=== PATIENT | female | born 1935 | race Two or more races ===

== ENCOUNTER 2019-05-02 10:35 | Inpatient (IN) | payer MEDICARE, OTHER ==
[~2019-05-02] VITALS: Ht 167.6 cm; Wt 83.7 kg
[~2019-05-02 10:35] MED LIST: APIX2.5T PO; ATOR40TA78 PO; METO50TA82 PO/NG
--- NOTE | 2019-05-02 10:36 | NUR ---
BIB [facility] FOR STROKE LIKE SYMPTOMS. LAST SEEN NORMAL AT 0100 TODAY. WAS WOKEN UP AT 0700 TODAY W/ SX INCLUDING SLURRED GARGLED SPEECH W L SIDE FACIAL DROOP AND BLOOD IN MOUTH. PT SLUGGISH TO COMMANDS. HX CVA. ON COUMADIN. FOUND TO BE 60'S RA PLACED ON O2 CURRENTLY ON 16 L NONREBREATHER SATING 100%. 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 ERP [address] SMITH AT BEDSIDE FOR STROKE EVAL.
--- NOTE | 2019-05-02 10:41 | NUR ---
PT IN CT.
[2019-05-02] MEDS ORDERED: WARF1TAB74 PO (11:00)
[2019-05-02] MEDS ORDERED: SODIUM CHLORIDE FLUSH 10ML SYR IVF ONE (11:00)
[2019-05-02] MEDS ORDERED: AMLO10TA8 PO (11:00)
--- NOTE | 2019-05-02 11:25 | NUR ---
PT MORE AWAKE AND ALERT. RESPONDING TO QUESTIONS BETTER. MAKING STATEMENTS SUCH "IT'S COLD".
[2019-05-02 11:26] LABS: BASOPHILS # (AUTO) 0.04 x10^3/uL (0-0.1); BASOPHILS % (AUTO) 0 % (0-1); EOSINOPHILS % (AUTO) 0 % (1-7); LYMPHOCYTES # (AUTO) 1.23 x10^3/uL (1-3.4); LYMPHOCYTES % (AUTO) 12 % (22-44); MD NO; MEAN CORPUSCULAR HEMOGLOBIN 21.2 pg (27.0-34.8); MEAN CORPUSCULAR HGB CONC 31.9 g/dL (32.4-35.8); MEAN CORPUSCULAR VOLUME 66.5 fL (80-100); MEAN PLATELET VOLUME 8.7 fL (7.4-10.4); MONOCYTES # (AUTO) 0.18 x10^3/uL (0.2-0.8); MONOCYTES % (AUTO) 2 % (2-9); NEUTROPHILS # (AUTO) 9.12 x10^3/uL (1.8-6.8); NEUTROPHILS % (AUTO) 86 % (42-75); PLATELET COUNT 288 x10^3/uL (130-400); RED BLOOD COUNT 4.58 x10^6/uL (3.82-5.3); RED CELL DISTRIBUTION WIDTH 16.2 % (9.6-15.2)
--- NOTE | 2019-05-02 11:35 | NUR ---
PT RESTING ON GURNEY. NADN. VSS. PT O2 TITRATED TO 2L NC SATING 96-98%. ATTEMPTED RA SATS PT DESATED TO 87%.
[2019-05-02 11:37] LABS: INTERNATIONAL NORMALIZED RATIO 2.58 (0.93-1.1); PROTHROMBIN TIME 26.1 Seconds (9.6-11.5)
[2019-05-02 11:38] LABS: ALANINE AMINOTRANSFERASE 46 U/L (12-78); ALBUMIN 3.2 g/dL (3.4-5.0); ANION GAP 7 mmol/L (5-15); CALCIUM 8.4 mg/dL (8.5-10.1); CHLORIDE 109 mmol/L (98-107); CREATININE 1.31 mg/dL (0.55-1.02)
[2019-05-02 11:42] LABS: ALKALINE PHOSPHATASE 150 U/L (45-117); BILIRUBIN,TOTAL 0.8 mg/dL (0.2-1.0); TOTAL PROTEIN 7.7 g/dL (6.4-8.2)
[2019-05-02 11:55] LABS: SALICYLATE LEVEL < 1.7 mg/dL (2.8-20.0)
--- NOTE | 2019-05-02 12:13 | NUR ---
PT MOVED FROM TR03 TO ROOM 2. REPORT GIVEN TO MORENA BANKS.
--- NOTE | 2019-05-02 12:18 | NUR ---
REPORT FROM CRISTINA
[2019-05-02] MEDS ORDERED: FUROSEMIDE 40 MG/4 ML IV ONE (12:30)
[2019-05-02] MEDS ORDERED: ASPIRIN 81 MG TABLET CHEW PO ONE (12:30)
[2019-05-02 12:35] LABS: AMPHETAMINE SCREEN, URINE Negative (Negative); BARBITURATE SCREEN, URINE Negative (Negative); BENZODIAZEPINE SCREEN, URINE Negative (Negative); CANNABINOID SCREEN, URINE Negative (Negative); COCAINE SCREEN, URINE Negative (Negative); METHADONE SCREEN, URINE Negative (Negative); OPIATE SCREEN, URINE Negative (Negative)
[2019-05-02] MEDS ORDERED: FUROSEMIDE 40 MG/4 ML ONE (12:44)
[2019-05-02] MEDS ORDERED: ASPIRIN 81 MG TABLET CHEW ONE (12:44)
[2019-05-02 12:46] LABS: MICROSCOPIC INDICATED
--- NOTE | 2019-05-02 12:56 | NUR ---
MEDICATED FOR LASIX, CALL LIGHT IN REACH. PT IS UNABLE TO CHEW ASA.
[2019-05-02 13:02] LABS: CULTURE INDICATED? NO
[2019-05-02] MEDS ORDERED: ASPIRIN 300 MG SUPP PR ONE (13:30)
--- NOTE | 2019-05-02 13:43 | NUR ---
PT UNABLE TO SWALLOWS PILLS, ASA ORDERED FOR SUPPOSITORY.
--- NOTE | 2019-05-02 14:32 | NUR ---
ADMINISTERED ASA SUPPOSITORY. PT RESTING COMFORTABLE, FAMILY AT BEDSIDE. ON TELE HOLD
--- NOTE | 2019-05-02 14:33 | NUR ---
PT A&OX4, ANSWERING ALL QUESTIONS APPROPIATLY. SBA TO BATHROOM .
--- NOTE | 2019-05-02 14:38 | NUR ---
REPOSITIONED PT, GIVEN PILLOW. DISCUSSED POC FOR ADMIT
--- NOTE | 2019-05-02 14:52 | NUR ---
THROUGHPUT: RECEIVED A CALL FROM ADMITTING THAT PATIENT HAS [employer] WHICH IS NOT A [employer] PRODUCT. DISCUSSED WITH PHYSICAN DR. SMITH WHO STATES PATIENT IS NOT STABLE TO BE TRANSFERRED. EXPLAINED TO PATIENT AND FAMILY MEMBER ABOVE. PT STATES SHE CALLED HER INSURANCE AND THEY STATED TO COME TO [facility] [place].
--- NOTE | 2019-05-02 15:35 | NUR ---
PT AMBULATED SBA TO BATHROOM W OUT DIFFICULTY. [facility] AT BEDSIDE
--- NOTE | 2019-05-02 15:41 | NUR ---
TROPONIN 24.8. BAKARI GAONA APRN AWARE, PAGING DR. JOYNER.
--- NOTE | 2019-05-02 15:45 | NUR ---
DISCUSSED W DR. JOYNER, TROPONIN 24.8. NO ORDERS AT THIS TIME
[2019-05-02] MEDS ORDERED: ONDANSETRON ODT 4 MG PO PRN (16:00)
[2019-05-02] MEDS ORDERED: ONDANSETRON 2MG/ML, 2ML IVPush PRN (16:00)
--- NOTE | 2019-05-02 16:43 | NUR ---
report to raudel
[2019-05-02 17:00] VITALS: BP 146/85
[2019-05-02] MEDS: CARVEDILOL 6.25 MG TABLET PO SCH (17:27)
[2019-05-02] MEDS: FUROSEMIDE 40 MG/4 ML IV SCH (17:27)
[2019-05-02] MEDS ORDERED: WARFARIN 1 MG TABLET PO-COUM ONE (18:00)
[2019-05-02 19:15] VITALS: BP 146/75
[2019-05-02] MEDS: ATORVASTATIN 80 MG TABLET PO SCH (21:15)
[2019-05-03 01:03] VITALS: BP 119/70
[2019-05-03 05:27] LABS: BASOPHILS # (AUTO) 0.04 x10^3/uL (0-0.1); BASOPHILS % (AUTO) 0 % (0-1); EOSINOPHILS # (AUTO) 0.03 x10^3/uL (0-0.4); EOSINOPHILS % (AUTO) 0 % (1-7); LYMPHOCYTES # (AUTO) 2.18 x10^3/uL (1-3.4); LYMPHOCYTES % (AUTO) 24 % (22-44); MD NO; MEAN CORPUSCULAR HEMOGLOBIN 20.7 pg (27.0-34.8); MEAN CORPUSCULAR HGB CONC 31.1 g/dL (32.4-35.8); MEAN CORPUSCULAR VOLUME 66.7 fL (80-100); MONOCYTES # (AUTO) 0.42 x10^3/uL (0.2-0.8); MONOCYTES % (AUTO) 5 % (2-9); NEUTROPHILS # (AUTO) 6.34 x10^3/uL (1.8-6.8); NEUTROPHILS % (AUTO) 71 % (42-75); PLATELET COUNT 232 x10^3/uL (130-400); RED BLOOD COUNT 4.08 x10^6/uL (3.82-5.3); RED CELL DISTRIBUTION WIDTH 15.7 % (9.6-15.2)
[2019-05-03 05:33] LABS: ALBUMIN 2.9 g/dL (3.4-5.0); CHLORIDE 106 mmol/L (98-107)
[2019-05-03 05:36] LABS: ALANINE AMINOTRANSFERASE 37 U/L (12-78); BILIRUBIN,TOTAL 1.3 mg/dL (0.2-1.0); CHOLESTEROL, TOTAL 89 mg/dL (140-239); CREATININE 1.16 mg/dL (0.55-1.02); TOTAL PROTEIN 7.1 g/dL (6.4-8.2); TRIGLYCERIDES 62 mg/dL (50-200); VLDL CHOLESTEROL 12 mg/dL (0-25)
[2019-05-03 05:37] LABS: INTERNATIONAL NORMALIZED RATIO 2.39 (0.93-1.1); PROTHROMBIN TIME 24.3 Seconds (9.6-11.5)
[2019-05-03 05:39] LABS: ALKALINE PHOSPHATASE 122 U/L (45-117); ANION GAP 7 mmol/L (5-15); CALCIUM 8.5 mg/dL (8.5-10.1); CHOL/HDL RATIO 2.4; HDL CHOL % 42 % (28-40); HDL CHOLESTEROL (DIRECT) 37 mg/dL (40-60); LDL CHOLESTEROL,CALCULATED 40 mg/dL (54-169); LDL/HDL RATIO 1.1 (0.5-3.0)
[2019-05-03 06:23] VITALS: BP 129/71
[2019-05-03] MEDS: CARVEDILOL 6.25 MG TABLET PO SCH ×2 (06:24→19:23)
[2019-05-03] MEDS: ASPIRIN 81 MG TABLET EC PO SCH (06:24)
[2019-05-03] MEDS: FUROSEMIDE 40 MG/4 ML IV SCH ×2 (11:31→19:22)
[2019-05-03 15:09] VITALS: BP 147/79
[2019-05-03 18:30] VITALS: BP 120/68
[2019-05-03] MEDS: ATORVASTATIN 80 MG TABLET PO SCH (21:01)
[2019-05-04 00:10] VITALS: BP 116/70
[2019-05-04 05:02] LABS: BASOPHILS # (AUTO) 0.05 x10^3/uL (0-0.1); BASOPHILS % (AUTO) 0 % (0-1); EOSINOPHILS # (AUTO) 0.11 x10^3/uL (0-0.4); EOSINOPHILS % (AUTO) 1 % (1-7); LYMPHOCYTES # (AUTO) 2.33 x10^3/uL (1-3.4); LYMPHOCYTES % (AUTO) 22 % (22-44); MD NO; MEAN CORPUSCULAR HEMOGLOBIN 20.9 pg (27.0-34.8); MEAN CORPUSCULAR HGB CONC 31.1 g/dL (32.4-35.8); MEAN CORPUSCULAR VOLUME 67.3 fL (80-100); MEAN PLATELET VOLUME 9.1 fL (7.4-10.4); MONOCYTES # (AUTO) 0.56 x10^3/uL (0.2-0.8); MONOCYTES % (AUTO) 5 % (2-9); NEUTROPHILS # (AUTO) 7.65 x10^3/uL (1.8-6.8); NEUTROPHILS % (AUTO) 72 % (42-75); PLATELET COUNT 233 x10^3/uL (130-400); RED CELL DISTRIBUTION WIDTH 16.1 % (9.6-15.2)
[2019-05-04 05:11] LABS: INTERNATIONAL NORMALIZED RATIO 2.37 (0.93-1.1); PROTHROMBIN TIME 24.1 Seconds (9.6-11.5)
[2019-05-04 05:14] LABS: ALBUMIN 3.1 g/dL (3.4-5.0); ANION GAP 6 mmol/L (5-15); CALCIUM 8.4 mg/dL (8.5-10.1); CHLORIDE 104 mmol/L (98-107)
[2019-05-04 05:18] LABS: ALANINE AMINOTRANSFERASE 39 U/L (12-78); ALKALINE PHOSPHATASE 121 U/L (45-117); BILIRUBIN,TOTAL 1.3 mg/dL (0.2-1.0); CREATININE 1.23 mg/dL (0.55-1.02); TOTAL PROTEIN 7.2 g/dL (6.4-8.2)
[2019-05-04 05:58] VITALS: BP 139/71
[2019-05-04] MEDS: ASPIRIN 81 MG TABLET EC PO SCH (06:00)
[2019-05-04] MEDS: CARVEDILOL 6.25 MG TABLET PO SCH ×2 (06:00→17:04)
[2019-05-04 08:18] VITALS: BP 133/72
[2019-05-04] MEDS ORDERED: REGADENOSON 0.4 MG/5 ML SYRINGE ONE (09:15)
[2019-05-04] MEDS: FUROSEMIDE 40 MG/4 ML IV SCH ×2 (11:06→17:04)
[2019-05-04 15:18] VITALS: BP 138/72
[2019-05-04] MEDS ORDERED: SODIUM CHLORIDE 0.9%, 250ML IVBOLUS ONE (16:30)
[2019-05-04 16:59] VITALS: BP 137/65
[2019-05-04] MEDS: ATORVASTATIN 80 MG TABLET PO SCH (20:05)
[2019-05-04 20:18] VITALS: BP 115/69
[2019-05-05 02:22] VITALS: BP 146/73
[2019-05-05] MEDS: CARVEDILOL 6.25 MG TABLET PO SCH (05:09)
[2019-05-05] MEDS: ASPIRIN 81 MG TABLET EC PO SCH (05:09)
[2019-05-05 06:11] LABS: ANION GAP 8 mmol/L (5-15); CALCIUM 8.2 mg/dL (8.5-10.1); CHLORIDE 105 mmol/L (98-107); CREATININE 1.35 mg/dL (0.55-1.02)
[2019-05-05 06:48] VITALS: BP 132/67
[2019-05-05 06:53] LABS: INTERNATIONAL NORMALIZED RATIO 2.17 (0.93-1.1); PROTHROMBIN TIME 22.1 Seconds (9.6-11.5)
[2019-05-05] MEDS ORDERED: WARFARIN 1 MG TABLET PO-COUM ONE (08:00)
[2019-05-05] MEDS ORDERED: LISINOPRIL 5 MG TABLET PO SCH (09:00)
[2019-05-05 13:23] VITALS: BP 135/74
[2019-05-05] MEDS ORDERED: CARV6.2512 PO (16:17)
[2019-05-05] MEDS ORDERED: ASPI81TA45 PO (16:17)
[2019-05-05] MEDS ORDERED: LISI5TAB7 PO (16:17)
== END 2019-05-05 18:28 | disposition home health service (06) | DRG 280 ==
LOC: ED 10:42 → EDIP 13:31 → 5SO 17:02
PROVIDERS: ADMIT Hospitalist; ATTEND Hospitalist
PROC: 0T9B70Z Drainage of Bladder with Drainage Device, Via Natural or Artificial Opening (ICD-10-PCS; principal; 2019-05-02)
DX: I21.4 Non-ST elevation (NSTEMI) myocardial infarction (principal); I50.43 Acute on chronic combined systolic (congestive) and diastolic (congestive) heart failure; J96.01 Acute respiratory failure with hypoxia; G93.41 Metabolic encephalopathy; E43 Unspecified severe protein-calorie malnutrition; E87.2 Acidosis; D68.69 Other thrombophilia; I13.0 Hypertensive heart and chronic kidney disease with heart failure and stage 1 through stage 4 chronic kidney disease, or unspecified chronic kidney disease; I25.5 Ischemic cardiomyopathy; D50.9 Iron deficiency anemia, unspecified; D72.829 Elevated white blood cell count, unspecified; E78.5 Hyperlipidemia, unspecified; I25.10 Atherosclerotic heart disease of native coronary artery without angina pectoris; I48.0 Paroxysmal atrial fibrillation; N18.9 Chronic kidney disease, unspecified; R29.810 Facial weakness; R00.0 Tachycardia, unspecified; R47.81 Slurred speech; Z68.29 Body mass index [BMI] 29.0-29.9, adult; Z79.01 Long term (current) use of anticoagulants; Z86.73 Personal history of transient ischemic attack (TIA), and cerebral infarction without residual deficits; Z87.891 Personal history of nicotine dependence; Z90.710 Acquired absence of both cervix and uterus; Z72.89 Other problems related to lifestyle
CPT/HCPCS: 36415; 70450; 70551; 71045; 76700; 78452; 80048; 80053; 80061; 80074; 80307; 81001; 83605; 83735; 83880; 84100; 84145; 84443; 84484; 85025; 85610; 85730; 87040; 93005; 93017; 93306; 93880; 96374; G0378; J1940; J2785; A9502; J7050

== ENCOUNTER 2020-08-25 08:06 | Inpatient (IN) | payer MEDICARE, OTHER ==
[~2020-08-25] VITALS: Ht 171.4 cm; Wt 87.5 kg
[~2020-08-25 08:06] MED LIST changes: +AMLO-211 PO; +ASPI81TA45 PO; +CARV6.2512 PO; +LISI5TAB7 PO; +WARF1TAB74 PO
--- NOTE | 2020-08-25 08:12 | NUR ---
PT BIBA, REPORT TAKEN FROM EMS. PT C/O GLF AT HOME YESTERDAY AND TODAY. PT STATES "MY LEGS BECAME WEAK AND GAVE OUT." DENIES HEAD INJURY, DENIES MIDLINE CERVICAL TENDERNESS. DENIES LOC. NO INJURY SUSTAINED. PT FOUND TO BE IN AFIB, HX SAME. 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 250 CC NS BOLUS GIVEN SPECIAL NEEDS BUS DRIVER. PT A&O, RESPS EVEN AND SHALLOW, AFIB W RATE 90-100S, NO ECTOPY, NEURO INTACT. ALL MONITORS IN PLACE, AT BS.
[2020-08-25] MEDS ORDERED: SODIUM CHLORIDE 0.9%, 250ML IVBOLUS ONE (08:30)
[2020-08-25] MEDS ORDERED: PLEASE ENTER HEIGHT AND WEIGHT MC SCH (08:30)
[2020-08-25 08:50] LABS: MEAN CORPUSCULAR HEMOGLOBIN 20.6 pg (27.0-34.8); MEAN CORPUSCULAR HGB CONC 31.3 g/dL (32.4-35.8); MEAN PLATELET VOLUME 11.1 fL (7.4-10.4); PLATELET COUNT 265 x10^3/uL (130-400); RED BLOOD COUNT 4.58 x10^6/uL (3.82-5.3); RED CELL DISTRIBUTION WIDTH 16.9 % (9.6-15.2)
[2020-08-25 08:59] LABS: ALANINE AMINOTRANSFERASE 16 U/L (12-78); ALBUMIN 3.2 g/dL (3.4-5.0); ANION GAP 8 mmol/L (5-15); CALCIUM 8.7 mg/dL (8.5-10.1); CHLORIDE 105 mmol/L (98-107); CREATININE 2.72 mg/dL (0.55-1.02); INTERNATIONAL NORMALIZED RATIO 2.89 (0.93-1.1); PROTHROMBIN TIME 30.3 Seconds (9.6-11.5)
[2020-08-25 09:04] LABS: ALKALINE PHOSPHATASE 50 U/L (45-117); BILIRUBIN,TOTAL 1.5 mg/dL (0.2-1.0); TOTAL PROTEIN 7.4 g/dL (6.4-8.2); TROPONIN I 0.023 ng/mL (0.000-0.045)
[2020-08-25 09:06] LABS: MD YES
[2020-08-25 09:08] LABS: EOS#(MANUAL) 0.23 x10^3/uL (0.0-0.4); EOS% (MANUAL) 3 % (1-7); LYMPHS% (MANUAL) 29 % (22-44); MONOS#(MANUAL) 0.46 x10^3/uL (0.3-2.7); MONOS% (MANUAL) 6 % (2-9); SEG#(MANUAL) 4.71 x10^3/uL (1.8-6.8); SEGS% (MANUAL) 62 % (42-75)
[2020-08-25 09:09] LABS: ACANTHOCYTES 2+; ANISOCYTOSIS 2+; ECHINOCYTES 1+; HYPOCHROMIA 1+; MICROCYTOSIS 2+; OVALOCYTES 1+
--- NOTE | 2020-08-25 09:10 | NUR ---
PT STRAIGHT CATHED, INSUFFICIENT URINE IN BLADDER TO SEND TO LAB. MD NOTIFIED.
[2020-08-25 09:13] LABS: <PLATELET ESTIMATE> ADEQUATE; <PLT MORPHOLOGY> NORMAL PLT MORPH
--- NOTE | 2020-08-25 09:19 | NUR ---
PT TO CT
--- NOTE | 2020-08-25 09:32 | NUR ---
PT BACK FROM CT
--- NOTE | 2020-08-25 09:38 | NUR ---
PT UNABLE TO RECALL HOME MEDS. THIS RN CALLED PT PHARMACY, NO COLLECTION SPECIALIST AVAILABLE TO ASSIST WITH MED REC.
--- NOTE | 2020-08-25 09:55 | NUR ---
PT RESTING IN BED. ALL MONITORS ATTACHED, AFIB W RATE 80-90S
[2020-08-25] MEDS ORDERED: WARF1TAB74 PO (10:14)
[2020-08-25] MEDS ORDERED: ASPI81TA45 PO (10:14)
[2020-08-25] MEDS ORDERED: ATOR40TA78 PO (10:14)
[2020-08-25] MEDS ORDERED: WARF2TAB99 PO (10:14)
[2020-08-25 10:46] LABS: MICROSCOPIC INDICATED
--- NOTE | 2020-08-25 11:20 | NUR ---
PT RESTING IN BED, RESPS EVEN AND SHALLOW, AFIB WITH RATE 90S-100S. ALL MONITORS IN PLACE, CALL LIGHT IN REACH. PT AWARE OF POC.
--- NOTE | 2020-08-25 11:27 | NUR ---
REPORT GIVEN TO RECEIVING MORENA CERVANTES
[2020-08-25 11:46] VITALS: BP 92/56
[2020-08-25 14:17] VITALS: BP 100/76
[2020-08-25] MEDS ORDERED: ACETAMINOPHEN 325 MG TABLET PO PRN (15:30)
[2020-08-25] MEDS ORDERED: DOCUSATE 100 MG CAPSULE PO PRN (15:30)
[2020-08-25] MEDS ORDERED: ONDANSETRON 2MG/ML, 2ML IVPush PRN (15:30)
[2020-08-25] MEDS ORDERED: DILTIAZEM 5 MG/ML, 5ML IVPush PRN (16:00)
[2020-08-25 16:23] LABS: ANION GAP 7 mmol/L (5-15); CALCIUM 8.7 mg/dL (8.5-10.1); CHLORIDE 104 mmol/L (98-107)
[2020-08-25 16:27] LABS: TROPONIN I 0.273 ng/mL (0.000-0.045)
[2020-08-25] MEDS: SODIUM ZIRCONIUM CYCLOSILICATE 5 GM PO SCH ×2 (17:04→21:29)
[2020-08-25] MEDS ORDERED: WARFARIN 1 MG TABLET PO-COUM ONE (18:00)
[2020-08-25] MEDS: ATORVASTATIN 40 MG TABLET PO SCH (19:16)
[2020-08-25] MEDS: CARVEDILOL 6.25 MG TABLET PO SCH (19:16)
[2020-08-25 20:05] VITALS: BP 101/67
[2020-08-25 21:33] LABS: TROPONIN I 0.496 ng/mL (0.000-0.045)
[2020-08-26 01:14] VITALS: BP 112/64
[2020-08-26 04:38] LABS: BASOPHILS % (AUTO) 1 % (0-1); EOSINOPHILS % (AUTO) 3 % (1-7); LYMPHOCYTES % (AUTO) 32 % (22-44); MEAN CORPUSCULAR HEMOGLOBIN 20.6 pg (27.0-34.8); MEAN CORPUSCULAR HGB CONC 31.2 g/dL (32.4-35.8); MEAN PLATELET VOLUME 11.4 fL (7.4-10.4); MONOCYTES % (AUTO) 6 % (2-9); NEUTROPHILS % (AUTO) 58 % (42-75); PLATELET COUNT 208 x10^3/uL (130-400); RED BLOOD COUNT 4.27 x10^6/uL (3.82-5.3); RED CELL DISTRIBUTION WIDTH 16.5 % (9.6-15.2)
[2020-08-26 04:47] LABS: INTERNATIONAL NORMALIZED RATIO 2.95 (0.93-1.1); PROTHROMBIN TIME 30.9 Seconds (9.6-11.5)
[2020-08-26 04:48] LABS: ALBUMIN 3.1 g/dL (3.4-5.0); ANION GAP 7 mmol/L (5-15); CALCIUM 8.6 mg/dL (8.5-10.1); CHLORIDE 105 mmol/L (98-107); CHOLESTEROL, TOTAL 51 mg/dL (140-239); TRIGLYCERIDES 48 mg/dL (50-200); VLDL CHOLESTEROL 10 mg/dL (0-25)
[2020-08-26 04:58] LABS: % IRON SATURATION 10 % (20-55); ALANINE AMINOTRANSFERASE 16 U/L (12-78); ALKALINE PHOSPHATASE 45 U/L (45-117); BILIRUBIN,TOTAL 1.6 mg/dL (0.2-1.0); CHOL/HDL RATIO 2.2; HDL CHOL % 45 % (28-40); HDL CHOLESTEROL (DIRECT) 23 mg/dL (40-60); IRON LEVEL 33 mcg/dL (50-170); LDL CHOLESTEROL,CALCULATED 18 mg/dL (54-169); LDL/HDL RATIO 0.8 (0.5-3.0); TOTAL IRON BINDING CAPACITY 338 mcg/dL (250-450); TOTAL PROTEIN 6.8 g/dL (6.4-8.2)
[2020-08-26 05:55] LABS: MD MORPH REVIEW ONLY
[2020-08-26 05:56] LABS: <PLATELET ESTIMATE> ADEQUATE; ANISOCYTOSIS 2+; HYPOCHROMIA 2+; LARGE PLATELETS 1+; MICROCYTOSIS 2+; OVALOCYTES 1+; SCHISTOCYTES 1+
[2020-08-26 05:57] LABS: ACANTHOCYTES 1+; ECHINOCYTES 2+
[2020-08-26 06:00] LABS: TARGET CELLS 1+
[2020-08-26 06:30] VITALS: BP 108/73
[2020-08-26] MEDS: CARVEDILOL 6.25 MG TABLET PO SCH (06:32)
[2020-08-26] MEDS: SODIUM ZIRCONIUM CYCLOSILICATE 5 GM PO SCH ×3 (08:03→21:43)
[2020-08-26 08:11] VITALS: BP 99/71
[2020-08-26] MEDS: ASPIRIN 81 MG TABLET EC PO SCH (09:29)
[2020-08-26] MEDS: FUROSEMIDE 20 MG/2 ML IV SCH (12:40)
[2020-08-26 13:56] VITALS: BP 101/69
[2020-08-26] MEDS: CARVEDILOL 3.125 MG TABLET PO SCH (17:42)
[2020-08-26] MEDS ORDERED: WARFARIN 1 MG TABLET PO-COUM ONE ×2 (18:00)
[2020-08-26 19:45] VITALS: BP 100/68
[2020-08-26] MEDS: ATORVASTATIN 40 MG TABLET PO SCH (19:48)
[2020-08-27 02:23] VITALS: BP 104/71
[2020-08-27 05:38] LABS: BASOPHILS % (AUTO) 1 % (0-1); EOSINOPHILS % (AUTO) 4 % (1-7); LYMPHOCYTES % (AUTO) 30 % (22-44); MEAN CORPUSCULAR HEMOGLOBIN 20.8 pg (27.0-34.8); MEAN CORPUSCULAR HGB CONC 31.4 g/dL (32.4-35.8); MEAN PLATELET VOLUME 11.4 fL (7.4-10.4); MONOCYTES % (AUTO) 6 % (2-9); NEUTROPHILS % (AUTO) 59 % (42-75); PLATELET COUNT 218 x10^3/uL (130-400); RED BLOOD COUNT 4.22 x10^6/uL (3.82-5.3); RED CELL DISTRIBUTION WIDTH 16.5 % (9.6-15.2)
[2020-08-27 05:50] LABS: INTERNATIONAL NORMALIZED RATIO 2.91 (0.93-1.1); PROTHROMBIN TIME 30.5 Seconds (9.6-11.5)
[2020-08-27 05:52] LABS: CHLORIDE 104 mmol/L (98-107)
[2020-08-27 06:01] LABS: ANION GAP 8 mmol/L (5-15); CALCIUM 8.4 mg/dL (8.5-10.1); CREATININE 2.45 mg/dL (0.55-1.02); TROPONIN I 0.234 ng/mL (0.000-0.045)
[2020-08-27] MEDS: CARVEDILOL 3.125 MG TABLET PO SCH (06:14)
[2020-08-27 06:15] VITALS: BP 101/67
[2020-08-27 06:52] LABS: MD MORPH REVIEW ONLY
[2020-08-27 07:09] LABS: ANISOCYTOSIS 2+; MICROCYTOSIS 2+
[2020-08-27 07:10] LABS: <PLATELET ESTIMATE> ADEQUATE; ACANTHOCYTES 1+; ECHINOCYTES 2+; HYPOCHROMIA 2+; LARGE PLATELETS 1+; OVALOCYTES 1+; SCHISTOCYTES 1+; TARGET CELLS 1+
[2020-08-27 08:12] VITALS: BP 101/65
[2020-08-27] MEDS: FUROSEMIDE 20 MG/2 ML IV SCH (10:13)
[2020-08-27] MEDS: SODIUM ZIRCONIUM CYCLOSILICATE 5 GM PO SCH ×2 (10:14→14:00)
[2020-08-27] MEDS: ASPIRIN 81 MG TABLET EC PO SCH (10:14)
[2020-08-27] MEDS ORDERED: CARV3.1212 PO (12:04)
[2020-08-27 13:20] VITALS: BP 96/66
[2020-08-27] MEDS ORDERED: WARFARIN 1 MG TABLET PO-COUM ONE (18:00)
== END 2020-08-27 16:32 | disposition home health service (06) | DRG 73 ==
LOC: ED 09:13 → 5SO 10:39
PROVIDERS: ADMIT Internal Medicine; ATTEND Internal Medicine
PROC: 0T9B30Z Drainage of Bladder with Drainage Device, Percutaneous Approach (ICD-10-PCS; principal; 2020-08-25)
DX: G90.8 Other disorders of autonomic nervous system (principal); I50.43 Acute on chronic combined systolic (congestive) and diastolic (congestive) heart failure; I21.A1 Myocardial infarction type 2; N17.0 Acute kidney failure with tubular necrosis; I13.0 Hypertensive heart and chronic kidney disease with heart failure and stage 1 through stage 4 chronic kidney disease, or unspecified chronic kidney disease; D68.69 Other thrombophilia; I48.91 Unspecified atrial fibrillation; I73.9 Peripheral vascular disease, unspecified; E87.5 Hyperkalemia; D53.9 Nutritional anemia, unspecified; E78.5 Hyperlipidemia, unspecified; E88.09 Other disorders of plasma-protein metabolism, not elsewhere classified; I08.1 Rheumatic disorders of both mitral and tricuspid valves; I25.10 Atherosclerotic heart disease of native coronary artery without angina pectoris; I25.5 Ischemic cardiomyopathy; I65.29 Occlusion and stenosis of unspecified carotid artery; N18.30 Chronic kidney disease, stage 3 unspecified; I95.9 Hypotension, unspecified; W18.39XA Other fall on same level, initial encounter; I25.2 Old myocardial infarction; Z79.01 Long term (current) use of anticoagulants; Z86.73 Personal history of transient ischemic attack (TIA), and cerebral infarction without residual deficits; Z90.710 Acquired absence of both cervix and uterus; Y93.89 Activity, other specified; Y92.89 Other specified places as the place of occurrence of the external cause; Y99.8 Other external cause status
CPT/HCPCS: 36415; 70450; 71045; 76770; 80048; 80053; 80061; 81001; 83540; 83550; 83735; 83880; 84100; 84443; 84484; 85025; 85610; 93005; 93306; 93880; 99285; G0378; J1940; J7050